=== PATIENT | female | born 1960 | race Caucasian/White ===

== ENCOUNTER 2016-10-15 14:40 | Emergency (ER) | payer MEDICAID ==
[~2016-10-15] VITALS: Ht 157.5 cm; Wt 58.1 kg
[2016-10-15 15:06] VITALS: BP 111/76
== END 2016-10-15 16:02 | disposition left against medical advice (07) ==
LOC: ER 14:49
DX: M25.472 Effusion, left ankle (principal); Z53.21 Procedure and treatment not carried out due to patient leaving prior to being seen by health care provider
CPT/HCPCS: 93971